=== PATIENT | female | born 1965 | race Caucasian/White ===

== ENCOUNTER 2021-01-11 16:34 | Outpatient (REF) | payer OTHER, SELFPAY ==
--- NOTE | ~2021-01-11 | MM_ITS ---
EXAMINATION: MM SCREENING DIGITAL BREAST TOMOSYNTHESIS, BILATERAL CLINICAL INFORMATION: Screening. Asymptomatic. The lifetime risk of breast cancer based on the Tyrer-Cuzick Model is 11%. COMPARISON: Mammography: 06/12/2018, 05/29/2017, 11/21/2016 TECHNIQUE: Digital breast tomosynthesis is performed in both the craniocaudal and mediolateral oblique views along with computer-aided detection (CAD). Synthesized 2D images are generated from the tomosynthesis. Additional left MLO view is provided. FINDINGS: There are scattered areas of fibroglandular density (ACR BI-RADS breast composition Category b). There are no significant masses, abnormal calcifications, or other abnormalities. Parenchymal pattern is similar to prior studies. No developing density. There are scattered bilateral punctate calcifications again seen. Skin contours are smooth. The axilla are unremarkable. MM/MM tomosynthesis screening BI IMPRESSION: No mammographic evidence of malignancy. ASSESSMENT: BI-RADS 2: Benign RECOMMENDATION: Routine annual mammography screening. This patient's information was entered into a reminder system with a target due date for their next mammogram.
== END 2021-01-11 16:35 | disposition home or self-care (01) ==
LOC: HO.MAMMO 16:34
PROVIDERS: Visit Provider Internal Medicine
DX: Z12.31 Encounter for screening mammogram for malignant neoplasm of breast (principal)
CPT/HCPCS: 77063; 77067

== ENCOUNTER 2022-01-31 13:39 | Outpatient (REF) | payer OTHER, SELFPAY ==
--- NOTE | ~2022-01-31 | XR_ITS ---
EXAMINATION: RIGHT HAND/WRIST. CLINICAL INFORMATION: Pain right hand and wrist. COMPARISON: None TECHNIQUE: 4 views FINDINGS: There is no visible acute fracture, dislocation or subluxation seen. Especially there is no fracture involving the right hand on the scaphoid bone. There is no subluxation either. XR/XR hand wrist RT IMPRESSION: Unremarkable right hand and wrist exam.
--- NOTE | ~2022-01-31 | XR_ITS ---
EXAMINATION: XR CHEST CLINICAL INFORMATION: Cough COMPARISON: None TECHNIQUE: 2 views of the chest were obtained. FINDINGS: The cardiac and mediastinal contours are normal. There is question of a small granuloma in the left upper lobe overlying the posterior fifth rib versus vessel on end. The lungs are otherwise clear. There is no pleural effusion or pneumothorax. Bony structures are unremarkable. XR/XR chest 2V IMPRESSION: No evidence for acute disease in the chest.
== END 2022-01-31 13:40 | disposition home or self-care (01) ==
LOC: HO.XRAY 13:39
PROVIDERS: PCP Internal Medicine; Visit Provider Internal Medicine
DX: M79.641 Pain in right hand (principal); M25.531 Pain in right wrist; R06.2 Wheezing; R06.00 Dyspnea, unspecified; R05.8 Other specified cough
CPT/HCPCS: 71046; 73110; 73130

== ENCOUNTER 2022-02-07 13:18 | Outpatient (REF) | payer OTHER, SELFPAY ==
--- NOTE | ~2022-02-07 | MM_ITS ---
EXAMINATION: MM SCREENING DIGITAL BREAST TOMOSYNTHESIS, BILATERAL CLINICAL INFORMATION: Screening. Asymptomatic. The lifetime risk of breast cancer based on the Tyrer-Cuzick Model is 9%. COMPARISON: Mammography: 01/11/2021, 06/12/2018, 05/29/2017 TECHNIQUE: Digital breast tomosynthesis is performed in both the craniocaudal and mediolateral oblique views along with computer-aided detection (CAD). Synthesized 2D images are generated from the tomosynthesis. FINDINGS: There are scattered areas of fibroglandular density (ACR BI-RADS breast composition Category b). There are no significant masses, abnormal calcifications, or other abnormalities. Parenchymal pattern is similar to prior studies. There is no developing density or architectural abnormality. The axilla and skin contours are unremarkable. No significant changes. MM/MM tomosynthesis screening BI IMPRESSION: No mammographic evidence of malignancy. ASSESSMENT: BI-RADS 1: Negative RECOMMENDATION: Routine annual mammography screening. This patient's information was entered into a reminder system with a target due date for their next mammogram.
== END 2022-02-07 13:19 | disposition home or self-care (01) ==
LOC: HO.MAMMO 13:18
PROVIDERS: PCP Internal Medicine; Visit Provider Internal Medicine
DX: Z12.31 Encounter for screening mammogram for malignant neoplasm of breast (principal)
CPT/HCPCS: 77063; 77067

== ENCOUNTER 2022-02-26 15:53 | Outpatient (REF) | payer OTHER, SELFPAY ==
--- NOTE | 2022-02-26 17:16 | PFT_ITS ---
Forced vital capacity 100%, FEV1 107%, FEV1/FVC ratio is 83, [id number] 124%, and MVV 111. Post bronchodilator therapy, there is no change. Total lung capacity 100, residual volume 84. Diffusion capacity 79. CONCLUSION: Normal pulmonary function test and no evidence of obstructive or restrictive pulmonary disorder. MD MILLA Worthy/HEIKE / [id number]
== END 2022-02-26 15:54 | disposition home or self-care (01) ==
LOC: HO.RESP 15:53
PROVIDERS: PCP Internal Medicine; Visit Provider Internal Medicine
DX: J44.9 Chronic obstructive pulmonary disease, unspecified (principal); R06.2 Wheezing; R06.00 Dyspnea, unspecified; R05.8 Other specified cough
CPT/HCPCS: 94060; 94727; 94729

== ENCOUNTER 2023-02-14 14:53 | Outpatient (REF) | payer OTHER, SELFPAY | END 2023-02-14 14:54 | disposition home or self-care (01) | LOC: HO.MAMMO 14:53 | PROVIDERS: PCP Internal Medicine; Visit Provider Internal Medicine | DX: Z12.31 Encounter for screening mammogram for malignant neoplasm of breast (principal) | CPT/HCPCS: 77063; 77067 ==

== ENCOUNTER → 2023-02-14 15:00 | Outpatient (BNV) | payer OTHER, SELFPAY | PROVIDERS: PCP Internal Medicine; Visit Provider Radiology Diagnostic Radiology | DX: Z12.31 Encounter for screening mammogram for malignant neoplasm of breast (principal) | CPT/HCPCS: 77063; 77067 ==

== ENCOUNTER 2023-04-09 13:33 | Outpatient (AMB) | payer OTHER, SELFPAY ==
[2023-04-09 13:35] VITALS: BP 122/78; PULSE 73; O2SAT 99; BMI 24.4
--- NOTE | 2023-04-09 13:35 | A.OFFPC_ITS ---
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 Accompanied by: Self / Same As Patient Allergies No Known Allergies Allergy (Verified 04/09/23 14:16) Medication List - Last Reconciled 04/09/23 by New Castorena MD Aerochamber Plus Flow-Vu (inhalational spacing device) use with inhaler as directed NS albuterol sulfate 90 mcg/actuation (ProAir HFA) 2 puffs inhalation Q6H PRN 30 days omeprazole 20 mg PO QAM Tobacco use date assessed: 04/09/23 Dental Screening Dental Screen Date: 04/09/23 Did you have a dental visit in the last 12 months?: Yes Did you have a dental problem in the last 6 months where you did not have access to dental care?: No Was dental information given to patient?: Patient has dentist HPI PE HPI Details Patient comes in today for her annual physical examination States that she feels okay She denies any headaches or dizziness Denies any chest pains, no SOB No nausea/vomiting, no abdominal pain No change in bowel habits noted States that she has no pain or burning sensation on urination but has been experiencing symptoms of urinary frequency lately, especially at night and she sometimes also has occasional urge incontinence - would like to see urology to have these symptoms checked out further Needs a few of her Rx refilled Had her follow up labs done at [facility] last week - to discuss her results She is up-to-date with her colon cancer screening - last done in June 2022 (normal) and recommend repeat in 10 years (2032) She had her annual mammogram done back on 02/14/2023 Would also like to get her flu shot today [facility] Medical History (Updated 04/20/23 @ 23:39 by New Castorena MD) Vitamin D deficiency GERD without esophagitis Melasma Rosacea Surgical History Hx of colonoscopy (~07/01/22) Family History Mother No problems noted. Father No problems noted. Social History Housing: House Alcohol intake: current Alcohol intake frequency: holidays/special occasions only Patient Tobacco Use Status: Former Tobacco user Second Hand Smoke Exposure: Yes service: No Current occupational status: employed Cognitive needs: No Hearing needs: No Vision needs: No Questionnaire PHQ-9 Over the last 2 weeks, how often have you been bothered by any of the following problems? 1. Little interest or pleasure in doing things: not at all 2. Feeling down, depressed, or hopeless: not at all 3. Trouble falling or staying asleep, or sleeping too much: not at all 4. Feeling tired or having little energy: not at all 5. Poor appetite or overeating: not at all 6. Feeling bad about yourself - or that you are a failure or have let yourself or your family down: not at all 7. Trouble concentrating on things, such as reading the newspaper or watching television: not at all 8. Moving or speaking so slowly that other people could have noticed. Or the opposite - being so fidgety or restless that you have been moving around a lot more than usual: not at all 9. Thoughts that you would be better off or of hurting yourself in some way: not at all Total score: 0 Depression Screening Interpretation: Negative Depression Screening Done: Yes [id number] - PHQ-9 Billing: Yes Source: Developed by Drs. Broderick Nick, Ara Cali, Alex Barry and colleagues, with an educational paris from [employer]. Thrive Questionnaire Date Thrive assessed: 04/09/23 I am a: Patient What is your living situation today?: I have a steady place to live Within the past 12 months, did the food you bought not last and you didn't have the money to get more?: Never true Within the past 12 months, did you worry whether your food would run out before you got money to buy more?: Never true Do you have trouble paying for medicines?: No Do you have trouble getting transportation to medical appointments?: No Do you have trouble paying your heating and electricity bill?: No Do you have trouble taking care of your child, family member or friend?: No Do you have trouble with day-to-day activities such as bathing, preparing meals, shopping, managing finances, etc.?: No Are you currently unemployed and looking for a job?: No Are you interested in more education?: No Please select the resources that you would like help with: None Currently or been in a relationship where the following occur: no concerns reported AUDIT C Alcohol Use Questionnaire (AUDIT-C) 1. How often do you have a drink containing alcohol?: Monthly or less 2. How many drinks containing alcohol do you have on a typical day when you are drinking?: 1 or 2 3. How often do you have six or more drinks on one occasion?: Never Total Score: 1 Score Reviewed/Action Taken: Yes YOGI-7 AMB Questionnaire YOGI-7 Date YOGI - 7 assessed: 04/09/23 Feeling nervous, anxious, or on edge: 0 = Not at all Not being able to stop or control worryin = Not at all Worrying too much about different things: 0 = Not at all Trouble relaxin = Not at all Being so restless that it is hard to sit still: 0 = Not at all Becoming easily annoyed or irritable: 0 = Not at all Feeling afraid as if something awful might happen: 0 = Not at all Total YOGI-7 score (0-4 normal; 5-9 mild; 10-14 moderate; 15-21 severe): 0 Source: Developed by Drs. Broderick Nick, Ara Cali, Alex Barry and colleagues, with an educational paris from [employer]. Review of Systems Const Denies chills, Denies fatigue, Denies fever(s), Denies headache(s) and Denies malaise Eyes Denies blurry vision, Denies change in vision, Denies irritation and Denies itchy eyes ENT Denies dysphagia, Denies dizziness, Denies otalgia, Denies headache(s), Denies nasal congestion, Reports neck pain (on and off), Denies odynophagia, Denies sinus pain and Denies sore throat Card Denies chest pain, Denies rapid heart rate, Denies irregular heart rhythm, Denies palpitations and Denies dyspnea Resp Denies chest congestion, Denies cough, Denies dyspnea and Denies wheezing GI Denies abdominal pain, Denies bloating, Denies constipation, Denies dysphagia, Denies heartburn, Denies diarrhea, Denies nausea, Denies odynophagia and Denies vomiting Denies hematuria, Denies urinary frequency, Reports nocturia, Denies dysuria, Reports urinary incontinence (at times, mostly urge incontinence (mild)) and Denies urinary urgency Musc Reports back pain (on and off, over the upper thoracic muscles), Denies arthralgias, Denies joint swelling, Denies muscle weakness and Reports neck pain (on and off) Skin/Breast Denies breast pain, Denies breast mass, Denies change in pigmentation, Denies lesions, Denies rash and Denies unusual bruising Neuro Denies dizziness, Denies headache(s) and Denies paresthesias Psych Denies anxiety and Denies depression Endo Denies fatigue and Denies palpitations [place]/Lymph Denies easy bruising Aller/Immun Denies itchy eyes and Denies wheezing Physical exam (Primary Care) Vital Signs: Last Vital Signs Pulse 73 04/09/23 13:35 BP 122/78 04/09/23 13:35 Pulse Ox 99 04/09/23 13:35 Oxygen Delivery Method Room Air 04/09/23 13:35 BMI result Body Mass Index 24.4 Tobacco/Smoking Status: Tobacco use Status Tobacco use date assessed 04/09/23 04/09/23 13:41 Patient Tobacco Use Status Former Tobacco user 04/09/23 13:41 PHQ-9: PHQ-9 Score PHQ-9: Total score 0 04/09/23 14:22 Depression Screening Interpretation: Negative Thrive Assessment: Date of Thrive Assessment Date Thrive assessed 04/09/23 04/09/23 13:41 Currently or been in a relationship where the following occur: no concerns reported Const General: no acute distress, alert and awake Orientation/consciousness: patient oriented x3 HENMT Head: Yes normocephalic and Yes atraumatic Ears: external ears normal, TM's normal bilaterally and EAC's normal General nose exam: No nasal discharge present Face and sinus: Yes normal facial exam and Yes sinuses nontender Teeth and gingiva: dentition normal Throat: Yes posterior oropharynx normal and Yes tonsils normal (no TP congestion) Eyes Eyelids: Yes eyelids normal Conjunctivae: conjunctivae normal Pupils: Equal, round and reactive pupils present EOM: EOMs intact bilaterally Neck Neck: Yes no lymphadenopathy and Yes supple Thyroid: Thyroid normal Resp Auscultation: clear to auscultation bilaterally, no rales and no wheezes Cardio Rate: regular rate Rhythm: regular rhythm Heart sounds: no murmurs GI Palpation (GI): Soft to palpation, nontender and No hepatosplenomegaly present Auscultation: normal bowel sounds General: Yes no CVA tenderness Back/Spine/Pelvis Back: no CVA tenderness Thoracic/Lumbar Spine: thoracic and lumbar spine normal to inspection Skin Lesions: no lesions Rashes: no rashes Neuro General: patient oriented x3, moves all extremities, no focal motor deficits and CN's II-XI intact bilaterally Cranial nerves: Yes Equal, round and reactive pupils present Cognition (Neuro): normal cognition Gait exam (Neuro): Normal gait present Extrem General: Yes no clubbing, cyanosis or edema Office Procedures Flu Questionnaire Does the patient have a severe egg allergy?: No Does the patient have severe life threatening allergies?: No Does the patient have a fever or illness today?: No Has the patient ever had Guillain-[place] Syndrome?: No Has the patient ever had any past reaction to a flu shot?: No Immunizations flu vacc [id number] 6mos up(PF) 60 mcg(15 mcgx4)/0.5 mL IM syringe Performing Provider: New Castorena MD [facility] Administered by: Vicente Cruz on 04/09/23 13:44 Dose Route Admin Location Dispensed Lot Number Expiration Date [facility] Insurance Billing Clerk 0.5 mL IM Left Deltoid 0.5 mL [id number] 11/02/23 60496-296-70 [employer] VIS Given Date VIS Provided VIS Publication Date 04/09/23 Single Vaccine 20 Eligibility Eligibility Date Funding Source Not [facility] Eligible 04/09/23 Private Assessment and Plan Assessment & Plan (1) Annual physical exam: Code(s): Z00.00 - Encounter for general adult medical examination without abnormal findings Plan: Results of her labs done at [facility] last week reviewed and discussed with patient She is currently up-to-date with her colon cancer and breast cancer screening - colonoscopy was last done in June 2022 (normal) and recommend repeat in 10 years (2032); she had her annual mammogram done back on 02/14/2023 States that she is also up-to-date with her annual gynecology exam and pap smear - goes to [facility] Reconciliation Specialist at [facility] (2) GERD without esophagitis: Code(s): K21.9 - Gastro-esophageal reflux disease without esophagitis Plan: Dietary restrictions reinforced Will start her back on Omeprazole 20 mg QD (3) Overactive bladder: Code(s): N32.81 - Overactive bladder Plan: Will refer her to urology for further evaluation and management (4) Vitamin D deficiency: Code(s): E55.9 - Vitamin D deficiency, unspecified Plan: Patient is advised that her Vitamin D level is low on her recent labs Will start her on Vitamin D3 2000 units QD - advised that she can get this OTC without a prescription if her insurance will not approve it (5) Myofascial pain: Code(s): M79.18 - Myalgia, other site Plan: Involving the cervical and upper thoracic myofascial areas - symptoms occur on and off Per request, will refer her back to physical therapy for further evaluation and management Plan Flu vaccine given today To return in 1 year for her next annual physical examination Orders: Orders Influenza [id number] Immunization 04/09/23 Z23 - Encounter for immunization PT Evaluation and Treatment 04/09/23 M79.18 - Myalgia, other site, S29.019A - Strain of muscle and tendon of unspecified wall of thorax, initial encounter Complete Blood Count Auto Diff 365 Days Z00.00 - Encounter for general adult medical examination without abnormal findings Comprehensive [place]. Panel Fast 365 Days Z00.00 - Encounter for general adult medical examination without abnormal findings Lipid Panel 365 Days E78.00 - Pure hypercholesterolemia, unspecified, Z00.00 - Encounter for general adult medical examination without abnormal findings TSH reflex Free T4 365 Days Z00.00 - Encounter for general adult medical examination without abnormal findings UA CC w/rflx Micro + Cult 365 Days R30.0 - Dysuria, Z00.00 - Encounter for general adult medical examination without abnormal findings Vitamin D 25-OH Total 365 Days E55.9 - Vitamin D deficiency, unspecified, Z00.00 - Encounter for general adult medical examination without abnormal findings Referrals Urology Referral N32.81 - Overactive bladder Medications: New cholecalciferol (vitamin D3) 50 mcg PO DAILY 90 caps 3RF 90 days E55.9 - Vitamin D deficiency, unspecified Changed From omeprazole 20 mg PO QAM To omeprazole 20 mg PO QAM 90 caps 1RF 90 days Discontinued albuterol sulfate 90 mcg/actuation Discontinued Reason: Patient no longer taking 2 puffs inhalation Q6H 30 days PRN 18 grams 1RF shortness of breath or wheezing Coding Level of Care Code Est Pt Prev Care 40-64y(95843) Diagnoses Annual physical exam Z00.00 GERD without esophagitis K21.9 Overactive bladder N32.81 Vitamin D deficiency E55.9 Myofascial pain M79.18
== END 2023-04-09 14:46 | disposition home or self-care (01) ==
PROVIDERS: PCP Internal Medicine; Visit Provider Internal Medicine
DX: Z00.00 Encounter for general adult medical examination without abnormal findings (principal); K21.9 Gastro-esophageal reflux disease without esophagitis; N32.81 Overactive bladder; E55.9 Vitamin D deficiency, unspecified; M79.18 Myalgia, other site
CPT/HCPCS: 90471; 90686; 99396

== ENCOUNTER 2024-03-04 15:41 | Outpatient (REF) | payer OTHER, SELFPAY ==
--- NOTE | ~2024-03-04 | MM_ITS ---
EXAMINATION: MM SCREENING DIGITAL BREAST TOMOSYNTHESIS, BILATERAL CLINICAL INFORMATION: -58-year-old female presents for bilateral screening, with new complaint of milky nonbloody RIGHT nipple discharge upon compression for mammography, of which the patient states she has not previously witnessed. This was exchanged from a screening mammography to a diagnostic bilateral mammography for this reason. The patient could not stay for ultrasound imaging, and will have to return for dedicated right retroareolar targeted breast ultrasound. -Otherwise no significant family history of breast CA. No prior surgeries. COMPARISON: Mammography: 02/14/2023, 02/07/2022, 01/11/2021, and dating back to 2016. TECHNIQUE: Digital breast tomosynthesis is performed in both the craniocaudal and mediolateral oblique views along with computer-aided detection (CAD). Synthesized 2D images are generated from the tomosynthesis. FINDINGS: There are scattered areas of fibroglandular density (ACR BI-RADS breast composition Category b). There are no suspicious masses, suspicious grouped calcifications, or areas of architectural distortion in either breast. The parenchymal pattern is stable from prior exams. There is no skin or axillary abnormality. No mammographic abnormality in the retroareolar right breast present to explain nipple discharge. We will follow this with a dedicated targeted right breast diagnostic ultrasound. MM/MM tomosynthesis screening BI IMPRESSION: -No mammographic evidence of malignancy in either breast. -Observed bloody and milky nipple discharge right breast during the examination shows no mammographic correlate or abnormality to explain. We will bring the patient back for a TARGETED RIGHT RETROAREOLAR BREAST ULTRASOUND. ASSESSMENT: BI-RADS BI-RADS 0 - Incomplete: Needs additional Imaging. RECOMMENDATION: 1. Targeted ultrasound right breast retroareolar region for nipple discharge. 2. Radiology department staff will contact the patient for additional imaging. Additional Imaging required Electronically signed by: Avinash Guardado MD 03/05/2024 11:59 AM EDT
== END 2024-03-04 15:42 | disposition home or self-care (01) ==
LOC: HO.MAMMO 15:41
PROVIDERS: PCP Internal Medicine; Visit Provider Internal Medicine
DX: Z12.31 Encounter for screening mammogram for malignant neoplasm of breast (principal)
CPT/HCPCS: 77063; 77067

== ENCOUNTER → 2024-03-04 16:00 | Outpatient (BNV) | payer OTHER, SELFPAY | PROVIDERS: PCP Internal Medicine; Visit Provider Radiology Diagnostic Radiology | DX: Z12.31 Encounter for screening mammogram for malignant neoplasm of breast (principal) | CPT/HCPCS: 77063; 77067 ==

== ENCOUNTER → 2024-03-10 15:00 | Outpatient (BNV) | payer OTHER, SELFPAY | PROVIDERS: PCP Internal Medicine; Visit Provider Radiology Diagnostic Radiology | DX: N64.52 Nipple discharge (principal) | CPT/HCPCS: 76642 ==

== ENCOUNTER 2024-03-10 15:01 | Outpatient (REF) | payer OTHER, SELFPAY ==
--- NOTE | ~2024-03-10 | US_ITS ---
EXAMINATION: US DIAGNOSTIC ULTRASOUND BREAST, RIGHT CLINICAL INFORMATION: Diagnostic exam right breast, for episode of right nipple discharge during mammography which was blood tinged. Patient claims she has no chronic issues of nipple discharge right breast. COMPARISON: Mammography 03/04/2024, and prior exams. No prior relevant ultrasound. TECHNIQUE: Ultrasound of the right breast is performed with real-time deras scale imaging and color Doppler. Attention was given to the right retroareolar region to examine for etiology of nipple discharge. FINDINGS: There is no focal suspicious finding. There is no solid mass, architectural abnormality, abnormal shadowing, or edema in the soft tissue planes. Mild changes of retroareolar duct ectasia are present without intraluminal filling defect echoes or mass. US/US breast RT limited mamm only IMPRESSION: -Mild duct ectasia retroareolar right breast. No intraductal mass or other suspicious finding. -If the patient continues to have discharge, breast MRI may be of benefit. Otherwise recommend the patient return to routine annual screening mammography. ASSESSMENT: BI-RADS BI-RADS 2 RECOMMENDATION: 1. Patient should be managed based on the clinical impression. 2. Otherwise, routine annual screening mammography. This patient's information was entered into a reminder system with a target due date for their next mammogram. Electronically signed by: Avinash Guardado MD 03/11/2024 12:04 PM ROSEMARIE THOMSON
== END 2024-03-10 15:02 | disposition home or self-care (01) ==
LOC: HO.MAMMO 15:01
PROVIDERS: PCP Internal Medicine; Visit Provider Internal Medicine
DX: N64.52 Nipple discharge (principal)
CPT/HCPCS: 76642

== ENCOUNTER 2024-06-22 15:29 | Outpatient (AMB) | payer OTHER, SELFPAY ==
[2024-06-22 15:33] VITALS: BP 126/80; PULSE 71; O2SAT 99; BMI 24.0
--- NOTE | 2024-06-22 15:33 | MHC.PC.OV ---
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: No Accompanied by: Self / Same As Patient Allergies No Known Allergies Allergy (Verified 06/22/24 15:33) Tobacco use date assessed: 06/22/24 Dental Screening Dental Screen Date: 06/22/24 Did you have a dental visit in the last 12 months?: Yes Did you have a dental problem in the last 6 months where you did not have access to dental care?: No Was dental information given to patient?: Patient has dentist HPI disharge and lump on breast HPI Details Patient comes in today for further evaluation of a right breast discharge, which she states has been occurring on and off since she had her last mammogram done at the end of February 2024 Recalls that the discharge started when her breast was compressed during her last mammogram procedure and it was slightly blood-tinged at the time She subsequently had an ultrasound of the breast done a week later on 03/10/2024, which came out normal although it did show (+) mild changes of retroareolar duct ectasia without intraluminal filling defect echoes or masses or other suspicious findings but indicated that if the patient continues to have the discharge, then a breast MRI may be of benefit Patient states that her right breast discharge continues to recur She denies any pain in her breast although she has noticed some discomfort and pressure around the area behind her right nipple recently She has not noticed any unusual lumps or masses on self breast exam No other acute complaints or symptoms are noted at present [facility] Medical History (Updated 06/22/24 @ 16:24 by New Castorena MD) Vitamin D deficiency GERD without esophagitis Melasma Rosacea Surgical History Hx of colonoscopy (~07/01/22) Family History Mother No problems noted. Father No problems noted. Social History Housing: House Alcohol intake: current Alcohol intake frequency: holidays/special occasions only Patient Tobacco Use Status: Former Tobacco user Second Hand Smoke Exposure: Yes service: No Current occupational status: employed Cognitive needs: No Hearing needs: No Vision needs: No Questionnaire PHQ-9 Over the last 2 weeks, how often have you been bothered by any of the following problems? 1. Little interest or pleasure in doing things: not at all 2. Feeling down, depressed, or hopeless: not at all 3. Trouble falling or staying asleep, or sleeping too much: not at all 4. Feeling tired or having little energy: not at all 5. Poor appetite or overeating: not at all 6. Feeling bad about yourself - or that you are a failure or have let yourself or your family down: not at all 7. Trouble concentrating on things, such as reading the newspaper or watching television: not at all 8. Moving or speaking so slowly that other people could have noticed. Or the opposite - being so fidgety or restless that you have been moving around a lot more than usual: not at all 9. Thoughts that you would be better off or of hurting yourself in some way: not at all Total score: 0 Depression Screening Interpretation: Negative Depression Screening Done: Yes 04400 - PHQ-9 Billing: Yes Source: Developed by Drs. Broderick Nick, Ara Cali, Alex Barry and colleagues, with an educational paris from [employer]. Thrive Questionnaire Date Thrive assessed: 06/22/24 I am a: Patient What is your living situation today?: I have a steady place to live Within the past 12 months, did the food you bought not last and you didn't have the money to get more?: Never true Within the past 12 months, did you worry whether your food would run out before you got money to buy more?: Never true Do you have trouble paying for medicines?: No Do you have trouble getting transportation to medical appointments?: No Do you have trouble paying your heating and electricity bill?: No Do you have trouble taking care of your child, family member or friend?: No Do you have trouble with day-to-day activities such as bathing, preparing meals, shopping, managing finances, etc.?: No Are you currently unemployed and looking for a job?: No Are you interested in more education?: No Please select the resources that you would like help with: None Currently or been in a relationship where the following occur: No concerns reported THRIVE Score: 0 AUDIT C Alcohol Use Questionnaire (AUDIT-C) 1. How often do you have a drink containing alcohol?: Monthly or less 2. How many drinks containing alcohol do you have on a typical day when you are drinking?: 1 or 2 3. How often do you have six or more drinks on one occasion?: Never Total Score: 1 Score Reviewed/Action Taken: Yes YOGI-7 AMB Questionnaire YOGI-7 Date YOGI - 7 assessed: 06/22/24 Feeling nervous, anxious, or on edge: 0 = Not at all Not being able to stop or control worryin = Not at all Worrying too much about different things: 0 = Not at all Trouble relaxin = Not at all Being so restless that it is hard to sit still: 0 = Not at all Becoming easily annoyed or irritable: 0 = Not at all Feeling afraid as if something awful might happen: 0 = Not at all Total YOGI-7 score (0-4 normal; 5-9 mild; 10-14 moderate; 15-21 severe): 0 Source: Developed by Drs. Broderick Nick, Ara Cali, Alex Barry and colleagues, with an educational paris from [employer]. Review of Systems Const Denies fatigue, Denies fever(s) and Denies headache(s) ENT Denies dizziness, Denies headache(s), Denies neck pain and Denies sore throat Card Denies chest pain and Denies dyspnea Resp Denies chest congestion, Denies cough and Denies dyspnea GI Denies abdominal pain, Denies constipation, Denies heartburn, Denies diarrhea, Denies nausea and Denies vomiting Denies difficulty voiding, Denies nocturia, Reports nipple discharge (from the right breast - see HPI for details) and Denies dysuria Musc Denies back pain and Denies neck pain Skin/Breast Denies breast pain (but reports (+) discomfort and pressure behind her right nipple recently), Denies breast mass, Reports nipple discharge (from the right breast - see HPI for details) and Denies rash Neuro Denies dizziness and Denies headache(s) Endo Denies fatigue Physical exam (Primary Care) Vital Signs: Last Vital Signs Pulse 71 06/22/24 15:33 BP 126/80 06/22/24 15:33 Pulse Ox 99 06/22/24 15:33 Oxygen Delivery Method Room Air 06/22/24 15:33 BMI result Body Mass Index 24.0 Tobacco/Smoking Status: Tobacco use Status Tobacco use date assessed 06/22/24 06/22/24 15:39 Patient Tobacco Use Status Former Tobacco user 06/22/24 15:39 PHQ-9: PHQ-9 Score PHQ-9: Total score 0 06/22/24 16:25 Depression Screening Interpretation: Negative Thrive Assessment: Date of Thrive Assessment Date Thrive assessed 06/22/24 06/22/24 15:39 Currently or been in a relationship where the following occur: No concerns reported Const General: no acute distress and alert Neck Neck: Yes no lymphadenopathy and Yes supple Resp Auscultation: clear to auscultation bilaterally, no rales and no wheezes Cardio Rate: regular rate Rhythm: regular rhythm Heart sounds: no murmurs GI Palpation (GI): Soft to palpation and nontender Extrem General: Yes no clubbing, cyanosis or edema Coding Level of Care Code Est Pt Level 3 (09102) Diagnoses Breast discharge N64.52 Additional Codes PHQ-9 - 22310 - PHQ-9 Billing: Yes ([id number]) Assessment & Plan Assessment & Plan (1) Breast discharge: Code(s): N64.52 - Nipple discharge Category: Medical Plan: Patient states that her right breast discharge started when her breast was compressed during her last mammogram procedure on 03/04/2024 and it was slightly blood-tinged at the time She subsequently had an ultrasound of the breast done a week later on 03/10/2024, which came out normal although it did show (+) mild changes of retroareolar duct ectasia without intraluminal filling defect, echoes or masses or other suspicious findings but Breast MRI may be of benefit if patient continues to have the discharge We will go ahead and send patient for a right breast MRI for further evaluation She has been experiencing some pressure/discomfort behind her right nipple recently, we will go ahead and start her empirically on Cephalexin 500 mg every 6 hours x 7 days to cover for any developing mastitis or infection Plan To return as scheduled in August 2024 for her annual physical examination Orders: Orders MR breast RT wo con 06/22/24 N64.52 - Nipple discharge Medications: New cephalexin 500 mg PO Q6H 7 days 28 caps 0RF
== END 2024-06-22 16:27 | disposition home or self-care (01) ==
PROVIDERS: PCP Internal Medicine; Visit Provider Internal Medicine
DX: N64.52 Nipple discharge (principal)

== ENCOUNTER → 2024-06-22 15:29 | Outpatient (BNVA) | payer OTHER, SELFPAY | PROVIDERS: PCP Internal Medicine; Visit Provider Internal Medicine | DX: N64.52 Nipple discharge (principal) | CPT/HCPCS: 96127 ==

== ENCOUNTER 2024-07-19 15:44 | Outpatient (REF) | payer OTHER, SELFPAY ==
--- NOTE | ~2024-07-19 | MR_ITS ---
EXAMINATION: MR BREAST WITHOUT AND WITH CONTRAST, BILATERAL CLINICAL INFORMATION: 6 months of right milky and bloody nipple discharge patient had mammography and ultrasound February 2024 and March 2024 for this symptom. Patient's right breast very tender to touch. Family history of breast cancer including aunt. COMPARISON: Mammography February 2024 ultrasound March 2024. TECHNIQUE: MR imaging of the breast was performed using T1, T2 and fat saturated techniques. Dynamic multiphase imaging was also performed after administration of intravenous gadolinium contrast agent. Computer generated 3-D reconstruction was generated. FINDINGS: There is heterogeneous fibroglandular breast tissue with moderate background enhancement. LEFT BREAST: No suspicious enhancing masses or areas of nonmass enhancement. No internal mammary or axillary adenopathy. RIGHT BREAST: Irregular enhancing mass encompassing the near entire right breast measuring approximately 50 mm anterior to posterior extending from just behind the nipple by 54 mm transverse by 60 mm superior to inferior with associated adjacent stranding and edema. This mass extends retroareolar and inferiorly from the nipple and slightly medial. There is minimal skin thickening and enhancement at the area of the nipple and inferior central breast. There is no chest wall involvement. Series 1041 images 71-104. No internal mammary adenopathy. Question prominent axillary lymph node. Limited views of the chest and abdomen are unremarkable. MR/MR breast BI wo/w con IMPRESSION: Left: Negative. Right: 1. Irregular enhancing mass encompassing nearly entire right breast extending from the nipple posteriorly and inferiorly measuring up to 60 mm. Recommend breast and axillary ultrasound at this time. At the time mammography could also be considered for further evaluation. If no correlate is seen then MRI guided core needle biopsy is recommended at this time. Recommend breast surgical consultation for clinical evaluation and further management. 2. Question axillary prominent lymph node. Recommend ultrasound for confirmation. ASSESSMENT: LEFT BREAST: BI-RADS 1-Negative RIGHT BREAST: BI-RADS 4 suspicious. RECOMMENDATIONS: Recommend Second Look right breast ultrasound and right axillary ultrasound at this time as well as possible right breast mammography. If no ultrasound correlate is seen MRI guided core needle biopsy is recommended at this time. Electronically signed by: Isabel Jackson DO 07/20/2024 10:44 AM EDT
[2024-07-19] MEDS: gadobutroL 7.5 ML VIAL IVPUSH (17:05)
== END 2024-07-19 15:45 | disposition home or self-care (01) ==
LOC: HO.MRI 15:44
PROVIDERS: PCP Internal Medicine; Visit Provider Internal Medicine
DX: N64.52 Nipple discharge (principal)
CPT/HCPCS: 77049; A9585

== ENCOUNTER → 2024-07-19 15:49 | Outpatient (BNV) | payer OTHER, SELFPAY | PROVIDERS: PCP Internal Medicine; Visit Provider Internal Medicine | DX: N64.52 Nipple discharge (principal) | CPT/HCPCS: 77049 ==

== ENCOUNTER → 2024-07-21 13:00 | Outpatient (BNV) | payer OTHER, SELFPAY | PROVIDERS: PCP Internal Medicine; Visit Provider Internal Medicine | DX: N63.10 Unspecified lump in the right breast, unspecified quadrant (principal) | CPT/HCPCS: 19083; 76642; 77065 ==

== ENCOUNTER 2024-07-21 13:05 | Outpatient (REF) | payer OTHER, SELFPAY ==
--- NOTE | ~2024-07-21 | US_ITS ---
EXAMINATION: US DIAGNOSTIC ULTRASOUND BREAST, RIGHT CLINICAL INFORMATION: Irregular enhancing area in the right breast on recent MRI. Patient is having right breast pain and palpable lump in the same area. COMPARISON: Comparison is made with relevant prior imaging. TECHNIQUE: Ultrasound of the breast is performed with real-time deras scale imaging and color Doppler. FINDINGS: Targeted color Doppler ultrasound scanning in the right axilla demonstrates normal axillary tissue and normal lymph nodes. There is no axillary sonographic MM body. Targeted color Doppler ultrasound scanning in the retroareolar region and 6:00 demonstrates irregular hypoechoic ill-defined area which correlates with the MRI irregular enhancing nonmass enhancement dimensions of this area are difficult to measure and better assessed on the previous MRI. Results are discussed with the patient at time of visit. US/US breast RT limited mamm only IMPRESSION: Ill-defined irregular hypoechoic mass/tissue at 6:00 in the right breast correlating with the patient's palpable lump painful area and irregular enhancing area on MRI. Recommend ultrasound-guided core needle biopsy at this time for confirmation. The findings and recommendations were discussed with the patient the procedure will be scheduled today. Normal right axillary lymph nodes and tissue. ASSESSMENT: BI-RADS 4: Suspicious RECOMMENDATION: Biopsy Breast surgical consultation is recommended at this time for clinical evaluation and management and follow-up. This patient's information was entered into a reminder system with a target due date for their next mammogram. Electronically signed by: Isabel Jackson DO 07/21/2024 02:32 PM EDT
--- NOTE | ~2024-07-21 | MM_ITS ---
PROCEDURE: ULTRASOUND-GUIDED RIGHT BREAST BIOPSY CLINICAL INFORMATION: Irregular enhancing area in the right breast which correlates with patient's palpable right breast lump and ill-defined area seen on ultrasound as a correlate. Biopsy recommended and will be performed today. COMPARISON: Priors on PACS including breast MR July 19, 2024 mammogram February 2024 ultrasound March 2024. Mammography dating back to 2018. TECHNIQUE: The details of the procedure, as well as the risks, benefits, and alternatives to the procedure were explained to the patient in detail and all of her questions were answered, after which, written informed consent was obtained. PROCEDURE: Prior to the procedure, sonography revealed ill-defined irregular hypoechoic area/mass at 6:00 in the right breast. A time-out was performed, the lesion intended for biopsy was targeted and the skin of the right breast was then prepped and draped in the usual sterile fashion. Using sonographic guidance, sterile technique, and 1% lidocaine without epinephrine for local anesthesia, a total of 5 cores were obtained through the targeted area with a 14-gauge biopsy device. At the completion of tissue sampling, a single coil metallic clip was deposited at the biopsy site. An appropriate sample was obtained. The postprocedure 2-view direct digital mammogram reveals satisfactory positioning of the biopsy clip. The patient tolerated the procedure well and, after assuring adequate hemostasis, was discharged in good condition after reviewing postbiopsy breast care instructions. Final pathology results are pending. MM/MM tomosynthesis diagnostic RT IMPRESSION: 1. Uncomplicated sonographically-guided core biopsy of the right breast. The 2-view direct digital postprocedure mammogram reveals satisfactory positioning of the biopsy clip. 2. Final pathology results are pending. A separate report with final recommendations will be issued once these results are made available. 3. Breast focal consultation is recommended at this time for clinical evaluation and [id number]. Electronically signed by: Isabel Jackson DO 07/21/2024 02:32 PM EDT
[2024-07-21] MEDS: Sodium Bicarbonate 8.4% 50 MEQ/50 ML VIAL SUBCUT (14:01)
[2024-07-21] MEDS: Lidocaine HCl 1 % 20 ML VIAL SUBCUT (14:02)
== END 2024-07-21 13:06 | disposition home or self-care (01) ==
LOC: HO.MAMMO 13:05
PROVIDERS: PCP Internal Medicine; Visit Provider Internal Medicine
DX: D05.11 Intraductal carcinoma in situ of right breast (principal); Z17.1 Estrogen receptor negative status [ER-]; Z17.22 Progesterone receptor negative status
CPT/HCPCS: 19083; 76642; 77061; 77065; 88305; 88341; 88342; 88360; A4648; J2003

== ENCOUNTER 2024-08-25 16:35 | Outpatient (AMB) | payer OTHER, SELFPAY ==
[2024-08-25 17:02] VITALS: BP 142/84; PULSE 75; TEMP 36.4; O2SAT 98; BMI 23.7
--- NOTE | 2024-08-25 17:02 | MHC.PC.OV ---
Vital Signs 08/25/24 17:02 Height 5 ft 7 in Weight 151 lb 6 oz BMI 23.7 BP 142/84 H Blood Pressure Location Lt brachial Position Sitting Pulse 75 Pulse Source Pulse Oximeter Temp 97.5 F Temp Source Temporal Artery Scan Pulse Oximetry (%) 98 Oxygen Delivery Method Room Air Intake Visit Reasons: Annual PE [employer] Consultant Required: No Accompanied by: Self / Same As Patient Allergies No Known Allergies Allergy (Verified 08/25/24 17:13) Medication List - Last Reconciled 08/25/24 by New Castorena MD cholecalciferol (vitamin D3) 50 mcg PO DAILY 90 days omeprazole 20 mg PO QAM 90 days Tobacco use date assessed: 06/22/24 Dental Screening Dental Screen Date: 06/22/24 HPI Annual PE HPI Details Patient comes in today for her annual physical examination States that she has been feeling stressed/anxious lately since she was diagnosed with breast cancer a few weeks ago She initially underwent ultrasound-guided breast biopsy on 07/21/2024 after breast MRI done revealed an irregular enhancing mass encompassing nearly entire right breast extending from the nipple posteriorly and inferiorly measuring up to 60 mm Core needle Bx came back (+) for ductal carcinoma in situ, nuclear grade 3, apocrine type Patient then requested to see breast specialist at [facility], where she underwent a second MRI-guided biopsy, which came out consistent with right breast DCIS, grade 3, 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, Tis N0 She also underwent an ultrasound of the palpable axillary lymph node, which revealed normal node morphology She was recommended surgical treatment, which would be a mastectomy but she would not be a candidate for nipple sparing mastectomy due to the extension of the non-mass enhancement to the nipple areolar complex but she was advised that they can perform a skin sparing mastectomy with reconstruction or simple mastectomy with aesthetic flat closure She is due to see another specialist at [facility] in [place] in a couple of days for a second opinion, after which she will make her final decision on how to proceed with her treatment She is asking for something at this time to help her with anxiety/stress but she does not want something that she can become dependent upon Patient denies any headaches or dizziness Denies any chest pains, no shortness of breath No nausea/vomiting, no abdominal pain No change in bowel habits noted Patient adds that she's had issues with overactive bladder and urinary frequency and recurrent episodes of incontinence (both stress and urge) for a while now She is requesting for a referral to urology at [facility] - states that she already has an appointment scheduled to see them sometime in early October 2024 States that she has her follow-up labs done at [facility] last week - we have not yet received a copy of her results at this time but she recalls seeing her results online and states that her hemoglobin count was elevated although she can not recall the exact number She had a normal colonoscopy done a couple of years ago in June 2022 and she is not due for repeat colonoscopy until 2032 (10 years) She has an appointment for her yearly gynecology exam and Pap smear next week on 09/03/2024 [facility] Medical History (Updated 08/26/24 @ 02:28 by New Castorena MD) Ductal carcinoma in situ (DCIS) of right breast Vitamin D deficiency GERD without esophagitis Melasma Rosacea Surgical History Hx of colonoscopy (~07/01/22) Family History Mother No problems noted. Father No problems noted. Social History Housing: House Alcohol intake: current Alcohol intake frequency: holidays/special occasions only Patient Tobacco Use Status: Former Tobacco user Second Hand Smoke Exposure: Yes service: No Current occupational status: employed Cognitive needs: No Hearing needs: No Vision needs: No Questionnaire PHQ-9 Over the last 2 weeks, how often have you been bothered by any of the following problems? 1. Little interest or pleasure in doing things: several days 2. Feeling down, depressed, or hopeless: several days 3. Trouble falling or staying asleep, or sleeping too much: several days 4. Feeling tired or having little energy: several days 5. Poor appetite or overeating: not at all 6. Feeling bad about yourself - or that you are a failure or have let yourself or your family down: not at all 7. Trouble concentrating on things, such as reading the newspaper or watching television: not at all 8. Moving or speaking so slowly that other people could have noticed. Or the opposite - being so fidgety or restless that you have been moving around a lot more than usual: not at all 9. Thoughts that you would be better off or of hurting yourself in some way: not at all Total score: 4 Depression Screening Interpretation: Positive (more due to anxiety related to her recent breast cancer diagnosis) Depression Screening Follow-up: New Medication prescribed Depression Screening Done: Yes 75304 - PHQ-9 Billing: Yes Source: Developed by Drs. Broderick Nick, Ara Cali, Alex Barry and colleagues, with an educational paris from [employer]. Thrive Questionnaire Date Thrive assessed: 08/25/24 I am a: Patient What is your living situation today?: I have a steady place to live Within the past 12 months, did the food you bought not last and you didn't have the money to get more?: Never true Within the past 12 months, did you worry whether your food would run out before you got money to buy more?: Never true Do you have trouble paying for medicines?: No Do you have trouble getting transportation to medical appointments?: No Do you have trouble paying your heating and electricity bill?: No Do you have trouble taking care of your child, family member or friend?: No Do you have trouble with day-to-day activities such as bathing, preparing meals, shopping, managing finances, etc.?: No Are you currently unemployed and looking for a job?: No Are you interested in more education?: No Please select the resources that you would like help with: None Currently or been in a relationship where the following occur: No concerns reported THRIVE Score: 0 AUDIT C Alcohol Use Questionnaire (AUDIT-C) 1. How often do you have a drink containing alcohol?: Monthly or less 2. How many drinks containing alcohol do you have on a typical day when you are drinking?: 1 or 2 3. How often do you have six or more drinks on one occasion?: Never Total Score: 1 Score Reviewed/Action Taken: Yes YOGI-7 AMB Questionnaire YOGI-7 Date YOGI - 7 assessed: 08/25/24 Feeling nervous, anxious, or on edge: 1 = Several days Not being able to stop or control worryin = Not at all Worrying too much about different things: 2 = More than half the days Trouble relaxin = Several days Being so restless that it is hard to sit still: 0 = Not at all Becoming easily annoyed or irritable: 0 = Not at all Feeling afraid as if something awful might happen: 1 = Several days Total YOGI-7 score (0-4 normal; 5-9 mild; 10-14 moderate; 15-21 severe): 5 Source: Developed by Drs. Broderick Nick, Ara Cali, Alex Barry and colleagues, with an educational paris from [employer]. YOGI-7 Assessment Billing YOGI-7 Assessment Tool: YOGI-7 Assessment 77959 Review of Systems Const Denies chills, Denies fatigue, Denies fever(s), Denies headache(s) and Denies malaise Eyes Denies blurry vision, Denies change in vision, Denies irritation and Denies itchy eyes ENT Denies dysphagia, Denies dizziness, Denies otalgia, Denies headache(s), Denies nasal congestion, Denies neck pain, Denies odynophagia, Denies sinus pain and Denies sore throat Card Denies chest pain, Denies rapid heart rate, Denies irregular heart rhythm, Denies palpitations and Denies dyspnea Resp Denies chest congestion, Denies cough, Denies dyspnea and Denies wheezing GI Denies abdominal pain, Denies bloating, Denies constipation, Denies dysphagia, Denies heartburn, Denies diarrhea, Denies nausea, Denies odynophagia and Denies vomiting Denies hematuria, Denies urinary frequency, Reports nocturia, Denies dysuria, Reports urinary incontinence (on and off, both urge and stress ) and Denies urinary urgency Musc Denies back pain, Denies arthralgias, Denies joint swelling, Denies muscle weakness and Denies neck pain Skin/Breast Denies breast pain, Reports breast mass (right breast - see HPI), Denies change in pigmentation, Denies lesions, Denies rash and Denies unusual bruising Neuro Denies dizziness, Denies headache(s) and Denies paresthesias Psych Reports anxiety and Denies depression Endo Denies fatigue and Denies palpitations [place]/Lymph Denies easy bruising Aller/Immun Denies itchy eyes and Denies wheezing Physical exam (Primary Care) Vital Signs: Last Vital Signs Temp 97.5 F 08/25/24 17:02 Pulse 75 08/25/24 17:02 BP 142/84 H 08/25/24 17:02 Pulse Ox 98 08/25/24 17:02 Oxygen Delivery Method Room Air 08/25/24 17:02 BMI result Body Mass Index 23.7 Tobacco/Smoking Status: Tobacco use Status Tobacco use date assessed 06/22/24 08/25/24 17:05 Patient Tobacco Use Status Former Tobacco user 08/25/24 17:05 PHQ-9: PHQ-9 Score PHQ-9: Total score 4 08/25/24 19:05 Depression Screening Interpretation: Positive (more due to anxiety related to her recent breast cancer diagnosis) Depression Screening Follow-up: New Medication prescribed Thrive Assessment: Date of Thrive Assessment Date Thrive assessed 08/25/24 08/25/24 17:05 Currently or been in a relationship where the following occur: No concerns reported Const General: no acute distress, alert and awake Orientation/consciousness: patient oriented x3 HENMT Head: Yes normocephalic and Yes atraumatic Ears: external ears normal, TM's normal bilaterally and EAC's normal General nose exam: No nasal discharge present Face and sinus: Yes normal facial exam and Yes sinuses nontender Teeth and gingiva: dentition normal Throat: Yes posterior oropharynx normal and Yes tonsils normal (no TP congestion) Eyes Eyelids: Yes eyelids normal Conjunctivae: conjunctivae normal Pupils: Equal, round and reactive pupils present EOM: EOMs intact bilaterally Neck Neck: Yes no lymphadenopathy and Yes supple Thyroid: Thyroid normal Resp Auscultation: clear to auscultation bilaterally, no rales and no wheezes Cardio Rate: regular rate Rhythm: regular rhythm Heart sounds: no murmurs GI Palpation (GI): Soft to palpation, nontender and No hepatosplenomegaly present Auscultation: normal bowel sounds General: Yes no CVA tenderness Back/Spine/Pelvis Back: no CVA tenderness Thoracic/Lumbar Spine: thoracic and lumbar spine normal to inspection Skin Lesions: no lesions Rashes: no rashes Neuro General: patient oriented x3, moves all extremities, no focal motor deficits and CN's II-XI intact bilaterally Cranial nerves: Yes Equal, round and reactive pupils present Cognition (Neuro): normal cognition Gait exam (Neuro): Normal gait present Extrem General: Yes no clubbing, cyanosis or edema Coding Level of Care Code Est Pt Prev Care 40-64y(83414) Diagnoses Annual physical exam Z00.00 Ductal carcinoma in situ (DCIS) of right breast D05.11 Overactive bladder N32.81 GERD without esophagitis K21.9 Vitamin D deficiency E55.9 Anxiety F41.9 Additional Codes YOGI-7 Assessment Billing - YOGI-7 Assessment Tool: YOGI-7 Assessment 80438 ([id number]) PHQ-9 - 50871 - PHQ-9 Billing: Yes ([id number]) Assessment & Plan Assessment & Plan (1) Annual physical exam: Code(s): Z00.00 - Encounter for general adult medical examination without abnormal findings Category: Medical Plan: Patient states that she had her labs done at [facility] last week but we have not yet received these from [facility] so we are unable to review and go over them with patient during her visit today We will try to request for them tomorrow as it is now past closing time and advised patient that we will reach out to her with any additional advice or recommendations once we are able to review her recent lab results She had a normal colonoscopy done a couple of years ago in June 2022 and is not due for repeat colonoscopy until 2032 (10 years) She has an appointment for her yearly gynecology exam and Pap smear next week on 09/03/2024 (2) Ductal carcinoma in situ (DCIS) of right breast: Comment: initially diagnosed 07/21/2024 - DCIS, grade 3, 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. Tis, N0 Code(s): D05.11 - Intraductal carcinoma in situ of right breast Category: Medical Plan: Patient initially underwent an ultrasound-guided breast biopsy on 07/21/2024 after her breast MRI done revealed an irregular enhancing mass encompassing nearly entire right breast extending from the nipple posteriorly and inferiorly measuring up to 60 mm Core needle Bx came back (+) for ductal carcinoma in situ, nuclear grade 3, apocrine type Patient then requested to see breast specialist at [facility], where she underwent a second MRI-guided biopsy, which came out consistent with right breast DCIS, grade 3, 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, Tis N0 She also underwent an ultrasound of the palpable axillary lymph node, which revealed normal node morphology She was recommended surgical treatment (mastectomy) - was advised that she would not be a candidate for nipple sparing mastectomy due to the extension of the non-mass enhancement to the nipple areolar complex but a skin sparing mastectomy with reconstruction or simple mastectomy with aesthetic flat closure can be performed She is due to see another specialist at [facility] in [place] in a couple of days for a second opinion, after which she will make her final decision on how to proceed with her treatment (3) Overactive bladder: Code(s): N32.81 - Overactive bladder Category: Medical Plan: Per request, will refer her to [facility] for further evaluation and management (4) GERD without esophagitis: Code(s): K21.9 - Gastro-esophageal reflux disease without esophagitis Category: Medical Plan: Dietary restrictions reinforced Continue Omeprazole 20 mg QD (5) Vitamin D deficiency: Code(s): E55.9 - Vitamin D deficiency, unspecified Category: Medical Plan: Continue Vitamin D3 2000 units QD (6) Anxiety: Code(s): F41.9 - Anxiety disorder, unspecified Category: Medical Plan: Will start patient on Hydroxyzine 25 mg 1 to 2 tablets TID PRN for anxiety/stress Patient is cautioned about potential drowsiness from the medication so she should not take this if she is going to be driving or doing anything that requires concentration Plan Follow up in 6 months Orders: Referrals Urology Referral N32.81 - Overactive bladder Medications: New hydroxyzine HCl Take 1 to 2 tablets 3 times a day as needed for increased anxiety PRN; 30 days 90 tabs 2RF anxiety
== END 2024-08-25 17:42 | disposition home or self-care (01) ==
LOC: HO.HMCH 16:36
PROVIDERS: PCP Internal Medicine; Visit Provider Internal Medicine
DX: Z00.00 Encounter for general adult medical examination without abnormal findings (principal); D05.11 Intraductal carcinoma in situ of right breast; N32.81 Overactive bladder; K21.9 Gastro-esophageal reflux disease without esophagitis; E55.9 Vitamin D deficiency, unspecified; F41.9 Anxiety disorder, unspecified

== ENCOUNTER → 2024-08-25 16:35 | Outpatient (BNVA) | payer OTHER, SELFPAY | PROVIDERS: PCP Internal Medicine; Visit Provider Internal Medicine | DX: Z00.00 Encounter for general adult medical examination without abnormal findings (principal); D05.11 Intraductal carcinoma in situ of right breast; N32.81 Overactive bladder; K21.9 Gastro-esophageal reflux disease without esophagitis; E55.9 Vitamin D deficiency, unspecified; F41.9 Anxiety disorder, unspecified; Z79.899 Other long term (current) drug therapy | CPT/HCPCS: 96127 ==

== ENCOUNTER 2024-10-04 15:20 | Outpatient (REF) | payer OTHER, SELFPAY ==
[2024-10-04 15:37] LABS: MANUAL DIFF FLAG NO
[2024-10-04 16:11] LABS: Basophils Percent Auto 0.3 % (0-2); Hematocrit 43.4 % (37.0-47.0); Hemoglobin 15.3 g/dl (12.0-16.0); Imm Gran Abs Auto 0.03 X10*3/uL (0.00-0.03); Imm Gran Pct Auto 0.5 % (0.0-0.4); Lymphocytes Absolute Auto 0.5 X10*3/uL (1.2-4.9); Lymphocytes Percent Auto 7.4 % (20-40); Mean Corpuscular HGB Conc 35.3 g/dl (31.0-35.0); Mean Corpuscular Hemoglobin 31.6 pg (27.0-33.0); Mean Corpuscular Volume 89.7 fL (80.0-98.0); Mean Platelet Volume 9.2 fL (9.4-12.3); Monocytes Absolute Auto 0.3 X10*3/uL (0.1-1.2); Monocytes Percent Auto 4.2 % (2-11); Neutrophils Absolute Auto 5.5 x10*3/uL (2.0-8.3); Neutrophils Percent Auto 87.6 % (45-73); Platelet Count 147 X10*3/uL (160-400); Red Blood Count 4.84 X10*6/uL (4.20-5.50); Red Cell Distribution Width 12.5 % (11.0-16.0); White Blood Count 6.2 X10*3/uL (4.8-10.8)
--- OUTSIDE RECORDS SUMMARY | 2024-10-04 16:32 | XMS_ITS | Continuity of Care Document ---
Author Organization [facility] Mariann araseli Address [address] [place] [address] [address] [place] [address]- Care Team Providers Care Corporate Tax Manager Name Role Phone New Castorena MD Primary Care Physician Encounter [place] Date(s): 09/01/24 - 10/01/24 [facility] [address] [id number] Attending Physician: Virginia Espinosa Admitting Physician: Virginia Espinosa Referring Physician: Admtr [id number] Encounter Type: Triage Allergies, Adverse Reactions, Alerts No Known Medication Allergies Medications Biotin By Mouth, Daily, 0 Refills, Maintenance, 03/09/14 8:39:31 AM EST Start Date: 03/09/14 Status: Ordered Repeat number: 1 omeprazole 20 mg oral enteric coated capsule 1 capsule = 20 mg, By Mouth, Daily, Start this medication after you hve had H Pylori testing. Take every morning 1/2 befoer breakfast, # 30 capsule, 4 Refills, Maintenance, 01/03/22 10:09:00 AM EDT, [place], [facility]/pharmacy #[id number], Partial fill upon patient request if the prescription is for a schedule II opioid drug. Start Date: 01/03/22 Status: Ordered Quantity: 30.0 Unit: capsule Repeat number: 5 [id number] with Electrolytes (Eqv-NuLYTELY) oral powder for reconstitution See Instructions, Mix powder with water according to the product label. Follow the [facility] instrucitons starting when to drink the prep fl;uid on the evening before the colonsocopy. 8 oz every 20 minutes, # 1 each, 0 Refills, Maintenance, 06/25/22 10:37:00 AM EST, [facility]/pharmacy #[id number], Partial fill upon patient request if the prescription is for a schedule II opioid drug., Mix powder with water according to the product label. Follow the [facility] instrucitons starting when to drink the prep fl;uidon the evening before the colonsocopy. 8 oz every 20 minutes Start Date: 06/25/22 Status: Ordered Quantity: 1.0 Unit: each Repeat number: 1 Vitamin D3 50 mcg (2000 intl units) oral tablet, chewable 1 tablet = 50 mcg, By Mouth, Daily, 0 Refills, Maintenance, 08/06/24 8:14:00 AM EDT, Partial fill upon patient request if the prescription is for a schedule II opioid drug. Start Date: 08/06/24 Status: Ordered Repeat number: 1 Social History Social History Type Response Smoking Status Former smoker entered on: 03/09/14 Sex Sex Representation Female (finding) Patient Care team information Care Team Personnel Name: New Castorena MD Position: Reference Physician Member Role: PCP Address: [address] [place] [address] Telecom: Care Team Related Persons Name: STEPHANY LEMONS Insurance Providers Guarantor name: BARBIE LEMONS Health Plan Information #: 1 [facility] Member Number: NA Policy Number: NA Group Number: NA
[2024-10-04 16:54] LABS: Alanine Aminotransferase 32 U/L (0-31); Albumin Level 4.5 g/dL (3.5-5.0); Alkaline Phosphatase 75 U/L (39-117); Anion Gap 13 (12-20); Aspartate Amino Transferase 32 U/L (5-31); Bilirubin Total 0.4 mg/dL (0.0-1.0); Blood Urea Nitrogen 12 mg/dL (9-16); Calcium 9.6 mg/dL (8.4-10.2); Carbon Dioxide 26 mmol/L (22-29); Chloride 105 mmol/L (96-108); Cholesterol 191 mg/dL (<200); Estimated Glomerular Filt Rate 51; Glucose Fasting 123 mg/dL (60-99); HDL Cholesterol 74 mg/dL (>40); LDL Cholesterol Calculated 104 mg/dL (<100); Potassium 3.6 mmol/L (3.3-5.1); Sodium 140 mmol/L (135-145); Triglycerides 65 mg/dL (<150)
[2024-10-04 17:10] LABS: TSH reflex Free T4 1.42 uIU/mL (0.32-4.0)
[2024-10-04 17:57] LABS: Appearance Urine Clear; Color Urine Yellow; Glucose Urine UA Negative (Negative); Leukocyte Esterase Urine Trace (Negative); Nitrite Urine Negative (Negative); UMIC TRIGGER UACC YES; Urine Blood Negative (Negative); Urine Ketones Negative (Negative); Urine Protein Negative (Neg-Trace)
[2024-10-04 18:00] LABS: Bacteria Urine None Seen (None Seen); Hyaline Casts Urine 0-2 /LPF (0-2); RBC Urine 0-2 /HPF (0-2); Squamous Epithelial Cell Urine 0-2 /HPF (0-2); UACC Culture Trigger YES
[2024-10-05 05:48] LABS: Lyme Abs Screen <0.90 index
== END 2024-10-04 15:21 | disposition home or self-care (01) ==
LOC: HO.LAB 15:20
PROVIDERS: PCP Internal Medicine; Visit Provider Internal Medicine
DX: Z00.00 Encounter for general adult medical examination without abnormal findings (principal); D64.9 Anemia, unspecified; E78.00 Pure hypercholesterolemia, unspecified; E55.9 Vitamin D deficiency, unspecified; T14.8XXA Other injury of unspecified body region, initial encounter; R30.0 Dysuria
CPT/HCPCS: 36415; 80053; 80061; 81001; 82306; 84443; 85025; 86617; 86618; 87086